=== PATIENT | female | born 1950 | race Caucasian/White ===

== ENCOUNTER 2020-07-13 18:06 | Inpatient (IN) | payer MEDICARE, MEDICAID ==
[~2020-07-13] VITALS: Ht 157.5 cm; Wt 69.4 kg
[2020-07-13 22:44] LABS: Basophils # (auto) 0 10 ^3/uL (0-0.2); Basophils % (auto) 0.1 % (0.0-2.0); Eosinophils # (auto) 0.1 10 ^3/uL (0-0.8); Eosinophils % (auto) 0.8 % (0.0-7.0); Hematocrit 41.4 % (36.0-46.0); Hemoglobin 13.8 g/dL (12.2-16.2); Lymphocytes % (auto) 14.5 % (10.0-50.0); Mean Corpuscular Hemoglobin 29.3 pg (28.0-32.0); Mean Corpuscular Hgb Conc. 33.3 g/dL (32.0-36.0); Mean Corpuscular Volume 88.1 fL (80.0-100.0); Monocytes # (auto) 0.7 10 ^3/uL (0-1.3); Monocytes % (auto) 10.7 % (0.0-12.0); Neutrophils # (auto) 4.9 10 ^3/uL (1.6-8.6); Neutrophils % (auto) 73.9 % (37.0-80.0); Nucleated Red Blood Cells % 0.1 %; Platelet Count (auto) 151 10^3/uL (140-450); Red Cell Distribution Width 15.9 % (11.8-14.3); White Blood Cell 6.6 10^3/uL (4.4-10.8)
[2020-07-13 23:02] LABS: Alanine Aminotransferase 61 U/L (13-56); Albumin 3.5 g/dL (3.4-5.0); Anion Gap 7 (5-15); Aspartate Aminotransferase 46 U/L (15-37); BUN/Creatinine Ratio 18.2; Blood Urea Nitrogen 14 mg/dL (7-18); Carbon Dioxide 28 mmol/L (21-32); Chloride 104 mmol/L (98-107); GFR African American 96 mL/min; GFR Non-African American 79 mL/min; Glucose 103 mg/dL (74-106); Magnesium 2.4 mg/dL (1.6-2.6); Sodium 139 mmol/L (136-145)
[2020-07-13 23:06] LABS: Alkaline Phosphatase 111 U/L (45-117); Bilirubin, Total 0.5 mg/dL (0.2-1.0); Total Protein 7.7 g/dL (6.4-8.2)
[2020-07-14 01:22] LABS: Urine Bacteria MANY /hpf (None Seen); Urine Blood Negative /uL (Negative); Urine Mucus FEW (None Seen); Urine Specific Gravity 1.016 (1.001-1.035); Urine WBC 652 /hpf (0 - 5); Urine WBC Clumps PRESENT /hpf (None Seen)
[2020-07-14] MEDS ORDERED: cefTRIAXone 1GM/50ML D5W 50 ML IV ONE (02:00)
[2020-07-14] MEDS ORDERED: ACETAMINOPHEN 325 MG TAB PO PRN (02:45)
--- NOTE | 2020-07-14 04:05 | NUR ---
Telemetry admit from ER ANAMIKA CARY admitted to Telemetry unit. Patient oriented to Pino Garcia, primary RN, unit, room, bed, and unit policies regarding patient care and visiting hours. Patient now on continuous telemetry monitoring, tele box #73 and telemetry reading on arrival to unit is SR 70. Patient weighed by bedscale and encouraged to call if they need something. All questions and concerns addressed, patient verbalized understanding.
[2020-07-14 05:00] VITALS: BP 129/62
[2020-07-14] MEDS ORDERED: LEV25T PO (06:15)
[2020-07-14] MEDS ORDERED: CETI-120 PO (06:15)
[2020-07-14] MEDS ORDERED: TRAZ-184 PO (06:15)
[2020-07-14] MEDS ORDERED: TEMA15CA91 PO (06:15)
[2020-07-14] MEDS ORDERED: OXYB5TAB61 PO (06:15)
[2020-07-14] MEDS ORDERED: PARO1TAB33 PO (06:15)
[2020-07-14] MEDS ORDERED: FURO40TA4 PO (06:15)
[2020-07-14] MEDS ORDERED: PNEUMOCOCCAL VACC POLYS 25 MCG/0.5 ML VIAL IM ONE (06:30)
[2020-07-14] MEDS: LEVOTHYROXINE SODIUM 25 MCG TAB PO SCH (07:00)
--- NOTE | 2020-07-14 07:35 | NUR ---
Patient resting quietly in bed with no distress noted. Patient stable.
[2020-07-14] MEDS: cefTRIAXone 1GM/50ML D5W 50 ML IV SCH (08:16)
[2020-07-14 08:20] VITALS: BP 131/69
--- NOTE | 2020-07-14 08:20 | NUR ---
Scheduled IV abx given per order. Patient resting comfortably in bed with no distress noted. Patient stable.
[2020-07-14 09:00] VITALS: BP 131/69
[2020-07-14] MEDS: FAMOTIDINE 20 MG TAB PO SCH (09:51)
[2020-07-14] MEDS: FUROSEMIDE 40 MG TAB PO SCH (09:51)
[2020-07-14] MEDS: ENOXAPARIN SOD 40 MG/0.4 ML SYRINGE SC SCH (09:52)
--- NOTE | 2020-07-14 09:53 | NUR ---
Scheduled medications given per order. Patient resting quietly in bed at this time. Addendum: 07/14/20 at 1004 by CIARA AJ RN RN Patient refused lovenox. Explained importance and use of medication.
--- NOTE | 2020-07-14 11:10 | NUR ---
Received call from Elliot at [facility]; ph [phone], fax [phone]. Will relay info to case finisher. Addendum: 07/14/20 at 1250 by CIARA AJ RN RN Information given to CM. Marielos
[2020-07-14] MEDS: HYDROcodone-ACET 5/325MG TAB PO PRN ×2 (11:20→19:59)
--- NOTE | 2020-07-14 11:20 | NUR ---
Patient medicated for 6/10 pain in left ankle and foot. Patient stable at this time.
--- NOTE | 2020-07-14 11:45 | NUR ---
WOUND CARE NOTE: IN TO SEE PATIENT AT THIS TIME PER WOUND CARE CONSULT REQUEST. PATIENT NOTED UPON ADMIT TO HAVE WOUNDS. ALL WOUNDS PHOTOGRAPHED AT THAT TIME BY BEDSIDE NURSE FOR REFERENCE. PATIENT ADMITTED TO [facility] WITH DIAGNOSIS OF METABOLIC ENCEPHALOPATHY. PATIENT HAS CURRENT BERRY SCORE OF 18. PATIENT IS ABLE TO SELF-TURN REPOSITION SELF. PATIENT ADMITS TO WEARING DIAPERS FOR LONG PERIODS OF TIME, RENDERING HER WITH MASD AND SKIN EROSION. THERE IS A 3 X 2 CM PARTIAL THICKNESS PRESSURE INJURY OVER MASD NOTED TO RIGHT AND LEFT SACRUM. APPLIED ZGUARD, OPTIFOAM GENTLE SACRAL DRESSING. PATIENT EDUCATED IN WOUND CARE/DIAPER USE AND RELATION TO MASD WOUNDS. PATIENT VERBALIZED UNDERSTANDING. PATIENT ALSO NOTED A SMALL SCABBED ABRASION TO THE LEFT VAUGHAN. LEFT OPEN TO AIR. NO OTHER SKIN ISSUES AT THIS TIME. RECOMMEND: FREQUENT TURN SCHEDULE Q 2 HOURS, PRN CONDITION PERMITS, WITH PRESSURE REDISTRIBUTION USING PILLOWS/WEDGES, BID/PRN APPLICATION WITH ZGUARD, OPTIFOAM GENTLE SACRAL DRESSING, SKIN/WOUND CARE PLAN, DIETARY CONSULT, CONTINUED MONITORING BY WOUND CARE TEAM. Addendum: 07/14/20 at 1813 by Olivia Dunne RN Amended: Links added.
--- NOTE | 2020-07-14 12:20 | NUR ---
Spoke to Dr. Camejo at nurses' station. Per doctor, he ordered an ortho consult with Dr. Garcia. Cardio consult with Dr. Carmichael was not ordered at this time.
--- NOTE | 2020-07-14 12:30 | NUR ---
Patient eating lunch at this time with no distress noted. Patient stable.
[2020-07-14 12:55] VITALS: BP 101/62
--- NOTE | 2020-07-14 14:00 | NUR ---
Patient resting quietly in bed with no complaint of pain. Patient stable.
--- NOTE | 2020-07-14 14:32 | NUR ---
assessment re: ss consult recent falls lives alone Patient is a 69 year old female who is alert and oriented. Patients cognitive abilities are intact. Prior to admission patient lived home alone and functioned with assistance. Per patient she will return home to her prior living arrangements post discharge and family will transport her home. Patient has a fww and a shower chair for home use. Patients PCP is Dr Tyler. Patient informed me she has a daily caregiver for 3 hours per day Carolina Tierney. Patient has [facility]. Patient wants to resume with [facility]. I informed patient of her ss consult for recent falls. Patient informed me she did fall at home. Patient states she started to walk and her legs gave out and she fell. Patient will need a resumption order for home health and needs home PT added to the order. Patient has been offered SNF. Patient refuses SNF and prefers to return home on discharge. Patient informed me she has no safety issues regarding returning home on discharge. I informed patient she has a right to speak to a social media editor regarding all care. I informed patient she has a right to participate in any and all discharge planning. Patient does not have a POA and advanced directive. I have offered patient information on POA and advanced directives. I informed the patient the advantages and benefits of having an Advanced Directive. Patient verbalized understanding and agreed to discharge plan. Addendum: 07/14/20 at 1438 by Lynn Gonzalez Amended: Links added.
--- NOTE | 2020-07-14 16:00 | NUR ---
Patient resting comfortably in bed with no complaint of pain at this time. Patient stable.
[2020-07-14 16:34] VITALS: BP 126/81
[2020-07-14] MEDS ORDERED: DIPH2.5T73 PO (17:27)
[2020-07-14] MEDS ORDERED: DILT60TA27 PO (17:27)
[2020-07-14] MEDS ORDERED: POTA10TA51 PO (17:27)
[2020-07-14] MEDS ORDERED: OLAN1TAB19 PO (17:27)
[2020-07-14] MEDS ORDERED: TRAM50TA2 PO (17:27)
[2020-07-14] MEDS ORDERED: GABA300C10 PO (17:27)
[2020-07-14] MEDS ORDERED: NITR0.4S29 SL (17:27)
[2020-07-14] MEDS ORDERED: BACL10TA PO (17:27)
--- NOTE | 2020-07-14 19:00 | NUR ---
Opening Shift Note Assumed care of patient, awake and alert. No S/S of distress/SOB, patient complains of pain in her lower extremities. Instructed on POC and to call for assist PRN, will continue to monitor for changes Q1hr and PRN. Patient in the lowest possible position with the call light within reach.
--- NOTE | 2020-07-14 20:00 | NUR ---
Patient stated that she gets Olanzopine 10mg, and temazapam 15 mg every night but no orders have been put in the emar, will page hospitalist.
--- NOTE | 2020-07-14 20:51 | NUR ---
Hospitalist called back. Due to patients history of falling with ALOC, Dr. Antoine did not put orders in for patients medications. Recommended to evaluate patient throughout the night as these are mind altering drugs and patient was admitted with Metabolic encephalopathy secondary dx ALOC. Will continue to monitor patient for pain.
[2020-07-14 22:00] VITALS: BP 121/74
--- NOTE | 2020-07-14 22:24 | NUR ---
Patient stated that she takes nightly her olanzopine 10mg and temazapam 15mg. Patient stated that she has been taking this for some time now and it helps her to sleep, patient said that without it she will have a hard time sleeping. Patient is to be monitored tonight for ALOC and endorsed to day shift about how patient was at night so that she could get her medications to sleep for her future nights. Patients medications were not reconciled in a timely manner and patient did not get her normal medications. Will monitor patient.
--- NOTE | 2020-07-15 00:30 | NUR ---
REPORT RECEIVED Received report from Natali ARREAGA. Entered room, patient found lying in bed, eyes closed, even and unlabored breathing. No distress noted. Bed in lowest and locked position, side rails x2 up, bed alarm turned on, call light within reach. Will continue to monitor Q1hr and PRN
--- NOTE | 2020-07-15 00:31 | NUR ---
Report given to GIBSON POPE.
[2020-07-15 05:02] VITALS: BP 121/63
[2020-07-15] MEDS: HYDROcodone-ACET 5/325MG TAB PO PRN (06:06)
[2020-07-15] MEDS: LEVOTHYROXINE SODIUM 25 MCG TAB PO SCH (06:06)
[2020-07-15 07:02] LABS: Calcium 8.5 mg/dL (8.5-10.1); Potassium 3.7 mmol/L (3.5-5.1)
[2020-07-15 07:05] LABS: BUN/Creatinine Ratio 21.9
--- NOTE | 2020-07-15 07:55 | NUR ---
Opening Shift Note Assumed care of patient, awake and alert A/O x 4. No S/S of distress/SOB or pain. Bed is locked and lowered call light in reach. Instructed on POC and to call for assist PRN, will continue to monitor for changes Q1hr and PRN.
[2020-07-15 09:00] VITALS: BP 140/78
[2020-07-15] MEDS: FAMOTIDINE 20 MG TAB PO SCH (09:30)
[2020-07-15] MEDS: FUROSEMIDE 40 MG TAB PO SCH (09:31)
[2020-07-15] MEDS: cefTRIAXone 1GM/50ML D5W 50 ML IV SCH (09:31)
[2020-07-15] MEDS: ENOXAPARIN SOD 40 MG/0.4 ML SYRINGE SC SCH (09:32)
[2020-07-15] MEDS ORDERED: PARoxetine 20 MG TAB PO ONE (10:30)
--- NOTE | 2020-07-15 10:30 | NUR ---
Dr. Camejo at bed side to see pt, doctor discussed the plan of care with pt.
[2020-07-15] MEDS: ONDANSETRON HCL 4 MG/2 ML VIAL IV PRN ×2 (12:07→20:23)
[2020-07-15 13:00] VITALS: BP 129/78
--- NOTE | 2020-07-15 14:51 | NUR ---
Nutrition Assessment/consult Notes please see attached link for complete assessment Est [employer] needs BW 60 [id number] kcals (25-30 kcal/kgBW), Est Protein needs: 60-78 gms/day (1.0-1.3 gm/kgBW r/t wounds). Will continue to monitor and reassess prn. Addendum: 07/15/20 at [address] Amended: Links added.
[2020-07-15 16:56] VITALS: BP 122/84
--- NOTE | 2020-07-15 19:30 | NUR ---
Opening Shift Note Assumed care of patient, awake and alert. No S/S of distress/SOB or pain. Insructed on POC and to callfor assist PRN, will continue to monitor for changes Q1hr and PRN. Fall and safety precautions in place. Call light within reach.
[2020-07-15] MEDS: TEMAZEPAM 15 MG CAP PO PRN (21:01)
[2020-07-15] MEDS: OLANZapine 5 MG TAB PO SCH (21:01)
[2020-07-15] MEDS: dilTIAZem 120MG ER CAP PO SCH (21:07)
[2020-07-15 21:33] VITALS: BP 136/83
[2020-07-16 05:00] VITALS: BP 138/80
[2020-07-16] MEDS: LEVOTHYROXINE SODIUM 25 MCG TAB PO SCH (05:55)
[2020-07-16] MEDS: ONDANSETRON HCL 4 MG/2 ML VIAL IV PRN ×3 (07:55→20:07)
[2020-07-16 09:10] VITALS: BP 137/81
[2020-07-16] MEDS: cefTRIAXone 1GM/50ML D5W 50 ML IV SCH (09:53)
[2020-07-16] MEDS: dilTIAZem 120MG ER CAP PO SCH ×2 (09:54→21:52)
[2020-07-16] MEDS: FAMOTIDINE 20 MG TAB PO SCH (09:55)
[2020-07-16] MEDS: FUROSEMIDE 40 MG TAB PO SCH (09:55)
[2020-07-16] MEDS: PARoxetine 20 MG TAB PO SCH (09:56)
[2020-07-16] MEDS: ENOXAPARIN SOD 40 MG/0.4 ML SYRINGE SC SCH (09:56)
--- NOTE | 2020-07-16 10:10 | NUR ---
Dr. Camejo at bed side to see pt, doctor discussed the plan of care with pt, pt reported having abdominal discomfort and nausea.
[2020-07-16] MEDS: HYDROcodone-ACET 5/325MG TAB PO PRN (12:00)
[2020-07-16 13:00] VITALS: BP 130/77
[2020-07-16] MEDS: PANTOPRAZOLE 40 MG TAB PO SCH ×2 (15:06→21:52)
[2020-07-16] MEDS: SUCRALFATE 1 GM/10 ML ORAL SUSP PO SCH ×3 (15:07→21:51)
[2020-07-16 17:05] VITALS: BP 134/80
--- NOTE | 2020-07-16 19:30 | NUR ---
Opening Shift Note Assumed care of patient, awake and alert. A&Ox4. Patient laying in bed. No S/S of distress/SOB or pain. Safety measures maintained by keeping the bed locked in lowest position, 2 side rails up, personal items and call light within reach. Instructed on POC and to call for assist PRN, will continue to monitor for changes Q1hr and PRN.
[2020-07-16] MEDS: OLANZapine 5 MG TAB PO SCH (21:52)
[2020-07-16] MEDS: TEMAZEPAM 15 MG CAP PO PRN (21:53)
[2020-07-16 21:54] VITALS: BP 120/76
[2020-07-17] MEDS: SUCRALFATE 1 GM/10 ML ORAL SUSP PO SCH ×4 (06:26→21:37)
[2020-07-17] MEDS: LEVOTHYROXINE SODIUM 25 MCG TAB PO SCH (06:27)
--- NOTE | 2020-07-17 08:00 | NUR ---
Received pt resting in bed, call light within reach, pt reports upper abdomen discomfort, pt schedule for EGD this morning, pt educated to be npo, will continue to monitor pt.
[2020-07-17 08:22] LABS: Basophils # (auto) 0 10 ^3/uL (0-0.2); Basophils % (auto) 0.1 % (0.0-2.0); Eosinophils # (auto) 0 10 ^3/uL (0-0.8); Eosinophils % (auto) 0.5 % (0.0-7.0); Hematocrit 42.4 % (36.0-46.0); Hemoglobin 14.5 g/dL (12.2-16.2); Lymphocytes # (auto) 0.8 10 ^3/uL (0.4-5.4); Mean Corpuscular Hemoglobin 29.5 pg (28.0-32.0); Mean Corpuscular Hgb Conc. 34.2 g/dL (32.0-36.0); Mean Corpuscular Volume 86.4 fL (80.0-100.0); Monocytes # (auto) 0.5 10 ^3/uL (0-1.3); Monocytes % (auto) 5.7 % (0.0-12.0); Neutrophils # (auto) 7.6 10 ^3/uL (1.6-8.6); Neutrophils % (auto) 84.7 % (37.0-80.0); Platelet Count (auto) 181 10^3/uL (140-450); Red Cell Distribution Width 15.6 % (11.8-14.3)
[2020-07-17] MEDS: ENOXAPARIN SOD 40 MG/0.4 ML SYRINGE SC SCH (08:23)
--- NOTE | 2020-07-17 08:30 | NUR ---
Called and spoke to Dr. Camejo regarding pt having an anxiety attack, pt is sweating and anxious, pt requesting medication for anxiety, received orders for Ativan 1 mg IV X1.
[2020-07-17 08:37] VITALS: BP 133/75
[2020-07-17] MEDS ORDERED: LORazepam 2MG/ML-1ML VIAL IM ONE (08:45)
[2020-07-17] MEDS: cefTRIAXone 1GM/50ML D5W 50 ML IV SCH (08:45)
[2020-07-17] MEDS ORDERED: SODIUM CHLORIDE LOCK 10 ML ONE (09:18)
[2020-07-17] MEDS ORDERED: LIDOCAINE VISCOUS 2% 15ML UD ONE (09:18)
[2020-07-17] MEDS ORDERED: MIDAZOLAM HCL 5 MG/ML-1ML VIAL ONE (09:18)
[2020-07-17] MEDS ORDERED: diphenhdrAMINE HCL 50 MG/1 ML VL ONE (09:19)
[2020-07-17] MEDS ORDERED: fentaNYL CITRATE 100 MCG/2 ML VL ONE (09:19)
[2020-07-17 10:04] LABS: INR 1.01 (0.9-1.15); Partial Thromboplastin Time 26.6 sec (23.0-31.2)
[2020-07-17] MEDS: PARoxetine 20 MG TAB PO SCH (10:07)
[2020-07-17] MEDS: PANTOPRAZOLE 40 MG TAB PO SCH ×2 (10:07→21:38)
[2020-07-17] MEDS: FUROSEMIDE 40 MG TAB PO SCH (10:07)
[2020-07-17] MEDS: FAMOTIDINE 20 MG TAB PO SCH (10:07)
[2020-07-17] MEDS: dilTIAZem 120MG ER CAP PO SCH ×2 (10:18→21:38)
[2020-07-17] MEDS: HYOSCYAMINE SULF 0.125 MG ODT TAB PO PRN ×2 (10:41→16:51)
--- NOTE | 2020-07-17 11:15 | NUR ---
Dr. Camejo at bed side to see pt, doctor discussed the plan of care with pt.
[2020-07-17] MEDS: ONDANSETRON HCL 4 MG/2 ML VIAL IV PRN ×2 (11:46→16:51)
[2020-07-17 12:52] VITALS: BP 144/84
[2020-07-17 16:47] VITALS: BP 127/67
--- NOTE | 2020-07-17 19:30 | NUR ---
OPENING NOTE Received report from day shift RN. Patient is A&O X's 4 with no s/s of distress and reports no pain at this time. Educated patient on POC and to use call light when in need of assistance and not to get up without assistance. Patient verbalized understanding. Patient aware she will be NPO at midnight. Bed is in lowest/locked position with side rails up X's 2 and call light is within reach of patient. Bed alarm on. EXERCISE RIDER at bedside to help patient wash her hair. Will continue care.
[2020-07-17] MEDS: TEMAZEPAM 15 MG CAP PO PRN (21:38)
[2020-07-17] MEDS: OLANZapine 5 MG TAB PO SCH (21:38)
[2020-07-17 23:32] VITALS: BP 126/84
--- NOTE | 2020-07-18 | NUR ---
NPO patient NPO and verbalized understanding. fluids removed from bedside table
[2020-07-18 05:31] VITALS: BP 122/74
[2020-07-18] MEDS: SUCRALFATE 1 GM/10 ML ORAL SUSP PO SCH ×4 (06:14→21:13)
[2020-07-18] MEDS: LEVOTHYROXINE SODIUM 25 MCG TAB PO SCH (06:15)
--- NOTE | 2020-07-18 06:15 | NUR ---
WOUND CARE performed as ordered. New optifoam placed to sacrum
[2020-07-18 07:11] LABS: Albumin 3.5 g/dL (3.4-5.0); Calcium 8.7 mg/dL (8.5-10.1); Potassium 3.1 mmol/L (3.5-5.1)
[2020-07-18 07:16] LABS: BUN/Creatinine Ratio 15.9; Bilirubin, Total 0.4 mg/dL (0.2-1.0); Total Protein 7.9 g/dL (6.4-8.2)
--- NOTE | 2020-07-18 07:30 | NUR ---
Opening Shift Note Assumed patient care from NOC RN. No signs of distress at this time. Respirations even and unlabored; AOx4. Safety precautions in place, will continue to monitor q1hr and PRN.
[2020-07-18 09:00] VITALS: BP 123/82
[2020-07-18] MEDS ORDERED: SODIUM CHLORIDE LOCK 10 ML ONE (09:08)
[2020-07-18] MEDS ORDERED: FLUMAZENIL 0.1 MG/ML INJ 10ML MDV IV ONE (09:08)
[2020-07-18] MEDS ORDERED: LIDOCAINE VISCOUS 2% 15ML UD ONE (09:08)
[2020-07-18] MEDS ORDERED: NALOXONE HCL 0.4 MG/ML VIAL ONE (09:08)
[2020-07-18] MEDS: ENOXAPARIN SOD 40 MG/0.4 ML SYRINGE SC SCH (09:09)
[2020-07-18] MEDS: cefTRIAXone 1GM/50ML D5W 50 ML IV SCH (09:09)
[2020-07-18] MEDS ORDERED: diphenhdrAMINE HCL 50 MG/1 ML VL ONE (09:09)
[2020-07-18] MEDS: PARoxetine 20 MG TAB PO SCH ×2 (10:00→17:46)
[2020-07-18] MEDS: FAMOTIDINE 20 MG TAB PO SCH (10:00)
[2020-07-18] MEDS: PANTOPRAZOLE 40 MG TAB PO SCH ×2 (10:00→21:12)
[2020-07-18] MEDS: FUROSEMIDE 40 MG TAB PO SCH (10:00)
[2020-07-18] MEDS: dilTIAZem 120MG ER CAP PO SCH ×2 (10:00→21:12)
[2020-07-18] MEDS ORDERED: LORazepam 2MG/ML-1ML VIAL IV ONE (10:45)
--- NOTE | 2020-07-18 10:45 | NUR ---
Spoke with Dr. Camejo regarding patient anxiety related to MRI and ERCP. New orders received. Will carry out new orders.
--- NOTE | 2020-07-18 10:54 | NUR ---
Anxiety Patient states she "feel anxious about the procedures" and is requesting medication to relieve anxiety. is aware and new orders were obtained. See EMAR. Addendum: 07/18/20 at 1103 by HEATHER PERRIN RN RN Patient medicated for anxiety. Dr. Sarmiento is also aware of medication; per , okay to give Ativan.
--- NOTE | 2020-07-18 10:59 | NUR ---
PreOp Spoke with Pre Op Rn regarding ERCP. Per Rn, patient can be taken to preop after MRI. MD aware patient is expected to be in MRI for 20-25 minutes.
--- NOTE | 2020-07-18 11:00 | NUR ---
Attempted PT eval, pt is off unit for procedure. Will attempt again.
--- NOTE | 2020-07-18 11:32 | NUR ---
Patient Off Unit Patient off unit for MRI.
[2020-07-18] MEDS: MIDAZOLAM HCL 5 MG/ML-1ML VIAL ONE ×2 (12:52→12:55)
[2020-07-18] MEDS: fentaNYL CITRATE 100 MCG/2 ML VL ONE ×2 (12:52→12:55)
--- NOTE | 2020-07-18 13:30 | NUR ---
Patient returned to Unit No signs of distress at this time. Respirations even and unlabored. Patient aware that she cannot drink/eat for another 1hr or until she is safely able to swallow. Will reassess q1hr and PRN. Safety precautions are in place.
--- NOTE | 2020-07-18 14:15 | NUR ---
Nutrition Followup Note Wt 68.3kg Pt was alert and oriented at time of rounds. pt reports appetite is not great and reports nausea and vomiting. Pt was NPO for scope today, diet advanced to 2g Na now s/p procedure. Pt consumed 60% of po intake 07/17 per RN note. Est Energy needs BW 60 [id number] kcals (25-30 kcal/kgBW), Est Protein needs: 60-78 gms/day (1.0-1.3 gm/kgBW r/t wounds). Will continue to monitor and reassess prn. Labs: Alb 3.5WNL BM: pt with 2 BMs 07/16 per Rn note Skin: BS 15 mod risk, full details in intensive care ambulance paramedic note. 1) Consider MVI/C bid 2) continue current plan of care Expected Outcomes/Goals: pt will have better healing wounds f/u 3-5 days
--- NOTE | 2020-07-18 14:50 | NUR ---
D/C Planning Per SS consult for a wheelchair. Faxed clinical information to [facility] requesting for medical equipment to be deliver to front lobby. Per Barbara with [employer] order was received and they will deliver wheelchair to front [facility] between 3-7pm.
[2020-07-18 17:00] VITALS: BP 133/75
--- NOTE | 2020-07-18 19:30 | NUR ---
OPENING NOTE Received report from day shift RN. Patient is A&O X's 4 with no s/s of distress and reports no pain at this time. Educated patient on POC and to use call light when in need of assistance. Patient verbalized understanding. Bed is in lowest/locked position with side rails up X's 2 and call light is within reach of patient. Bed alarm is set. Will continue care.
[2020-07-18] MEDS: TEMAZEPAM 15 MG CAP PO PRN (21:11)
[2020-07-18] MEDS: OLANZapine 5 MG TAB PO SCH (21:12)
[2020-07-18 22:00] VITALS: BP 129/74
[2020-07-19 05:11] VITALS: BP 127/70
[2020-07-19] MEDS: LEVOTHYROXINE SODIUM 25 MCG TAB PO SCH (06:21)
--- NOTE | 2020-07-19 06:28 | NUR ---
DRESSING CHANGE performed wound care as ordered. Applied new optifoam to sacrum. Patient tolerated well. No open wounds noted.
[2020-07-19] MEDS: SUCRALFATE 1 GM/10 ML ORAL SUSP PO SCH ×4 (06:42→22:05)
[2020-07-19 09:39] VITALS: BP 123/77
[2020-07-19] MEDS: cefTRIAXone 1GM/50ML D5W 50 ML IV SCH (11:05)
[2020-07-19] MEDS: FAMOTIDINE 20 MG TAB PO SCH (11:06)
[2020-07-19] MEDS: FUROSEMIDE 40 MG TAB PO SCH (11:08)
[2020-07-19] MEDS: PANTOPRAZOLE 40 MG TAB PO SCH ×2 (11:09→22:05)
[2020-07-19] MEDS: PARoxetine 20 MG TAB PO SCH (11:09)
[2020-07-19] MEDS: ENOXAPARIN SOD 40 MG/0.4 ML SYRINGE SC SCH (11:09)
[2020-07-19] MEDS: LORazepam 2MG/ML-1ML VIAL IV PRN ×2 (11:16→20:16)
[2020-07-19] MEDS: dilTIAZem 120MG ER CAP PO SCH ×2 (11:18→22:06)
--- NOTE | 2020-07-19 12:32 | NUR ---
re-assessment Per consult [facility] for physical therapy. Patient is on service with [facility]. Patient will resume with [facility] per patient. MD order has been sent to [facility]. Waiting for call back now. Addendum: 07/19/20 at 1233 by Lynn Gonzalez Amended: Links added.
[2020-07-19 13:00] VITALS: BP 121/74
[2020-07-19 16:55] VITALS: BP 122/69
--- NOTE | 2020-07-19 18:12 | NUR ---
PERSONAL WHEELCHAIR LOCATED TAGGED AND PLACED AT PTS BEDSIDE
--- NOTE | 2020-07-19 19:30 | NUR ---
OPENING NOTE Received report from day shift RN. Patient is A&O X's 4 with no s/s of distress and reports no pain. Educated patient on POC and to use call light when in need of any assistance. Patient verbalized understanding. Bed is in lowest/locked position with side rails up X's 2 and call light is within reach of patient. Bed alarm is on. Will continue care.
[2020-07-19 22:00] VITALS: BP 133/78
[2020-07-19] MEDS: OLANZapine 5 MG TAB PO SCH (22:05)
[2020-07-19] MEDS: TEMAZEPAM 15 MG CAP PO PRN (22:05)
[2020-07-20 05:00] VITALS: BP 130/70
[2020-07-20] MEDS: LEVOTHYROXINE SODIUM 25 MCG TAB PO SCH (06:09)
[2020-07-20] MEDS: SUCRALFATE 1 GM/10 ML ORAL SUSP PO SCH (06:09)
--- NOTE | 2020-07-20 06:16 | NUR ---
DRESSING CHANGE APPLIED Z-GUARD TO SACRUM AND APPLIED NEW OPTIFOAM.
--- NOTE | 2020-07-20 07:25 | NUR ---
Opening Shift Note Assumed care of patient, awake and alert. No S/S of distress/SOB or pain. Instructed on POC and to call for assist PRN, will continue to monitor for changes Q1hr and PRN.
[2020-07-20 08:07] VITALS: BP 133/78
[2020-07-20 09:00] VITALS: BP 139/86
[2020-07-20] MEDS: cefTRIAXone 1GM/50ML D5W 50 ML IV SCH (09:00)
[2020-07-20] MEDS: PARoxetine 20 MG TAB PO SCH (09:37)
[2020-07-20] MEDS: FUROSEMIDE 40 MG TAB PO SCH (09:37)
[2020-07-20] MEDS: dilTIAZem 120MG ER CAP PO SCH (09:37)
[2020-07-20] MEDS: PANTOPRAZOLE 40 MG TAB PO SCH (09:38)
[2020-07-20] MEDS: ENOXAPARIN SOD 40 MG/0.4 ML SYRINGE SC SCH (09:38)
[2020-07-20] MEDS: FAMOTIDINE 20 MG TAB PO SCH (09:38)
[2020-07-20] MEDS: LORazepam 2MG/ML-1ML VIAL IV PRN (09:38)
--- NOTE | 2020-07-20 10:58 | NUR ---
Discharge instructions given as ordered. Encourage to follow up with PMD as instructed on 08/01. All questions and concerns addressed. Patient verbalized understanding. Medication reconciliation form completed and copy given to patient, new prescriptions called in to rik patient and caregiver aware. . IV removed with catheter intact, pressure dressing applied, mendez catheter removed. Telemetry unit returned to ICU. Patient taken to vehicle via her wheelchair with all personal belongings, accompanied by staff to malgorz[facility] caregiver. No distress noted at time of departure.
== END 2020-07-20 11:00 | disposition home health service (06) | DRG 871 ==
LOC: EDBD 18:06 → ER 18:06 → TELE 18:07 → TELE-WESTW 07-14 04:05
PROVIDERS: ADMIT Nurse Practitioner; ATTEND Family Medicine
PROC: 0DB68ZX Excision of Stomach, Via Natural or Artificial Opening Endoscopic, Diagnostic (ICD-10-PCS; principal; 2020-07-18 12:50)
DX: A41.9 Sepsis, unspecified organism (principal); G93.41 Metabolic encephalopathy; N39.0 Urinary tract infection, site not specified; S09.90XA Unspecified injury of head, initial encounter; L89.152 Pressure ulcer of sacral region, stage 2; M43.12 Spondylolisthesis, cervical region; S93.401A Sprain of unspecified ligament of right ankle, initial encounter; S93.402A Sprain of unspecified ligament of left ankle, initial encounter; E03.9 Hypothyroidism, unspecified; W18.39XA Other fall on same level, initial encounter; I50.9 Heart failure, unspecified; M14.60 Charcot's joint, unspecified site; K29.70 Gastritis, unspecified, without bleeding; F32.9 Major depressive disorder, single episode, unspecified; Z20.828 Contact with and (suspected) exposure to other viral communicable diseases; G89.29 Other chronic pain; Z81.8 Family history of other mental and behavioral disorders; Z87.440 Personal history of urinary (tract) infections; Z98.1 Arthrodesis status; Y93.89 Activity, other specified; Y92.89 Other specified places as the place of occurrence of the external cause; Y99.8 Other external cause status; K74.60 Unspecified cirrhosis of liver
CPT/HCPCS: 36415; 43239; 51702; 70450; 71045; 72125; 73610; 73630; 73700; 74176; 74181; 80048; 80053; 81001; 82962; 83735; 83880; 84484; 85025; 85610; 85730; 86850; 86900; 86901; 87040; 87086; 87088; 87186; 96365; 97163; G0378; J0696; J2250; J2405